=== PATIENT | male | born 1955 | race Two or more races ===

== ENCOUNTER 2021-02-16 11:38 | Emergency (ER) | payer MEDICAID, OTHER ==
[~2021-02-16] VITALS: Ht 177.8 cm; Wt 99.8 kg
[2021-02-16] MEDS ORDERED: AMIODARONE 450mg/250ml AE 250 ML IV SCH ×4 (12:00→18:00)
[2021-02-16] MEDS ORDERED: AMIODARONE HCL 150 MG in D5W 5% 100 ML IV ONE ×4 (12:00)
[2021-02-16] MEDS ORDERED: ASPirin 300 MG RECTAL SUPP PR ONE (12:00)
[2021-02-16 12:01] LABS: Basophils # (auto) 0.1 10 ^3/uL (0-0.2); Basophils % (auto) 0.5 % (0.0-2.0); Eosinophils # (auto) 0.5 10 ^3/uL (0-0.8); Eosinophils % (auto) 2.6 % (0.0-7.0); Hematocrit 39.5 % (41.0-53.0); Hemoglobin 12.9 g/dL (13.5-17.5); Lymphocytes # (auto) 7.6 10 ^3/uL (0.4-5.4); Lymphocytes % (auto) 36.6 % (10.0-50.0); Mean Corpuscular Hemoglobin 29.7 pg (28.0-32.0); Mean Corpuscular Hgb Conc. 32.6 g/dL (32.0-36.0); Mean Corpuscular Volume 90.9 fL (80.0-100.0); Monocytes # (auto) 1.1 10 ^3/uL (0-1.3); Monocytes % (auto) 5.2 % (0.0-12.0); Neutrophils # (auto) 11.4 10 ^3/uL (1.6-8.6); Neutrophils % (auto) 55.1 % (37.0-80.0); Nucleated Red Blood Cells % 0.1 %; Red Blood Cells 4.34 10^6/uL (4.5-5.90); Red Cell Distribution Width 13.8 % (11.8-14.3); White Blood Cell 20.7 10^3/uL (4.4-10.8)
[2021-02-16] MEDS ORDERED: IOHEXOL 300 MG/ML 100ML BOTTLE IJ ONE (12:08)
[2021-02-16 12:17] LABS: Albumin 3.4 g/dL (3.4-5.0); Anion Gap 15 (5-15); Blood Urea Nitrogen 22 mg/dL (7-18); Calcium 8.2 mg/dL (8.5-10.1); Carbon Dioxide 16 mmol/L (21-32); Chloride 106 mmol/L (98-107); Glucose 316 mg/dL (74-106); Magnesium 2.4 mg/dL (1.6-2.6); Potassium 5.2 mmol/L (3.5-5.1); Sodium 137 mmol/L (136-145)
[2021-02-16 12:18] LABS: INR 1.04 (0.9-1.15); Partial Thromboplastin Time 29.3 sec (23.6-33.0)
[2021-02-16 12:23] LABS: Alanine Aminotransferase 341 U/L (16-61); Alkaline Phosphatase 79 U/L (45-117); Aspartate Aminotransferase 347 U/L (15-37); BUN/Creatinine Ratio 13.8; Bilirubin, Total 0.2 mg/dL (0.2-1.0); GFR African American 56 mL/min; GFR Non-African American 46 mL/min; Lactic Acid w/Reflex 7.1 mmol/L (0.4-2.0); Total Protein 7.1 g/dL (6.4-8.2)
[2021-02-16] MEDS ORDERED: MIDAZOLAM DRIP 50 mg/50mL 50 ML IV SCH (12:45)
[2021-02-16 12:48] VITALS: BP 148/106
[2021-02-16] MEDS ORDERED: SODIUM CHLORIDE 0.9% 1,000 ML IV ONE (13:00)
== END 2021-02-16 13:15 | disposition short-term general hospital (02) ==
LOC: EDBD 11:38 → ER 11:38
DX: S72.141A Displaced intertrochanteric fracture of right femur, initial encounter for closed fracture (principal); I46.9 Cardiac arrest, cause unspecified; I49.01 Ventricular fibrillation; I47.2 Ventricular tachycardia; E11.9 Type 2 diabetes mellitus without complications; I10 Essential (primary) hypertension; E78.00 Pure hypercholesterolemia, unspecified; W17.89XA Other fall from one level to another, initial encounter; Y93.89 Activity, other specified; Y92.89 Other specified places as the place of occurrence of the external cause; Y99.8 Other external cause status
CPT/HCPCS: 31500; 36415; 36600; 51702; 71045; 72170; 80053; 80320; 82010; 82553; 82805; 83605; 83735; 83880; 84484; 85025; 85610; 85730; 87070; 87205; 92950; 93005; 96365; 99291; J0282; J7060; L0120; 94002